=== PATIENT | female | born 1950 | race Caucasian/White ===

== ENCOUNTER 2016-05-15 10:19 | Inpatient (IN) ==
[2016-05-15] MEDS ORDERED: ZOFRAN IV PRN (11:27)
[2016-05-15] MEDS ORDERED: TYLENOL PO PRN (11:27)
[2016-05-15] MEDS ORDERED: DESYREL PO PRN (11:27)
[2016-05-15] MEDS ORDERED: SOLU-MEDROL IV ONE (11:27)
[2016-05-15] MEDS ORDERED: SOLU-MEDROL IV SCH (11:30)
[2016-05-15 11:59] LABS: ALLEN TEST YES; BLOOD TYPE ARTERIAL; DRAW SITE L RADIAL; METHB 1.2 % (0.0-1.5); O2(CT) 17.8 mL/dL (15.0-23.0); PCO2(98.6) 47 mmHg (35-45); PO2(98.6) 56 mmHg (60-100); SAMPLE BLOOD; SAO2 92.4 % (95.0-100.0); THB 14.3 g/dL (11.5-17.4); pH(98.6) 7.42 (7.35-7.45)
--- NOTE | 2016-05-15 12:01 | Diag Imaging Result Document ---
PROCEDURE NAME: CHEST-PORTABLE - 05/15/2016 PORTABLE CHEST X-RAY: COMPARISON: 05/15/2014. FINDINGS: There is cardiomegaly and pulmonary vascular congestion similar to prior. No new or focal infiltrates. No pneumothorax or large effusion. IMPRESSION: Cardiomegaly and pulmonary vascular congestion.
[2016-05-15 12:02] LABS: MODALITY CANNULA
[2016-05-15 12:02] LABS: MANUAL DIFF NEEDED? NO
[2016-05-15 12:05] LABS: BASO% 0.1 % (0.0-0.8); EOS# 0.15 X1000 (0.0-0.7); EOS% 1.1 % (0.0-10.0); HEMATOCRIT 42.1 % (37.0-47.0); HEMOGLOBIN 13.8 g/dL (12.0-16.0); IMM GRAN# 0.04 X1000 (0.0-0.04); IMM GRAN% 0.3 % (0.0-0.5); LYMPH# 1.44 X1000 (1.2-3.4); LYMPH% 10.5 % (20.5-51.1); MCH 32.8 PG (27-31); MCHC 32.8 g/dL (33-37); MONO# 1.05 X1000 (0.11-0.59); MONO% 7.6 % (1.7-9.3); MPV 10.3 FL (7.4-10.4); NEUT% 80.4 % (42.2-75.2); PLT 240 X1000 (130-400); RBC 4.21 XMIL (4.2-5.4)
[2016-05-15] MEDS: DUONEB (A & A) INH SCH ×4 (12:13→22:55)
[2016-05-15 12:25] LABS: AGAP 13; ALKALINE PHOSPHATASE 99 U/L (32-104); BUN 12 mg/dL (8-22); CALCIUM 9.2 mg/dL (8.8-10.2); CHLORIDE 96 mmol/L (98-107); COSMO 276; GOT 26 U/L (10-30); GPT 39 U/L (10-36); POTASSIUM 4.2 mmol/L (3.5-5.1); SODIUM 138 mmol/L (136-145); TCO2 29 mmol/L (25-35); TOTAL BILIRUBIN 0.51 mg/dL (0.20-1.00); TOTAL PROTEIN 8.1 g/dL (6.3-8.3)
[2016-05-15] MEDS: LOVENOX SUBQ SCH (12:53)
[2016-05-15] MEDS: NS 1,000 ML IV SCH (12:53)
[2016-05-15] MEDS: LEVAQUIN 750 MG/D5W 750 MG/150 ML IVPB IV SCH (12:53)
[2016-05-15] MEDS: CATAPRES PO SCH ×3 (12:54→23:16)
[2016-05-15] MEDS: CAPOTEN PO SCH ×2 (12:54→17:30)
[2016-05-15] MEDS: NEURONTIN PO SCH ×3 (12:54→23:16)
--- NOTE | 2016-05-15 16:10 | HISTORY AND PHYSICAL ---
CHIEF COMPLAINT: Fever and shortness of breath. HISTORY OF PRESENT ILLNESS: Mrs. Nena Motta is a 66-year-old lady with a history of multiple medical problems including essential hypertension, gastroesophageal reflux disease, obesity, renal cell carcinoma status post radical nephrectomy, as well as COPD, who is well known to me. She presented to the office today complaining of a one-week history of increasing shortness of breath, increasing work of breathing, pleuritic chest pain with deep inspiration and fits of coughing, cough productive of greenish sputum, fever as high as 102 degrees, and hard shaking rigors. She denied any nausea, vomiting, or abdominal pain. Her initial chest x-ray demonstrated no focal infiltrates, effusion, or pneumothorax. When I saw her in the office her O2 saturation was 77% on room air. PAST MEDICAL HISTORY: Hypertension, gastroesophageal reflux disease, obesity, history of renal cell carcinoma, COPD. PAST SURGICAL HISTORY: Left knee replacement, radical nephrectomy, lumbar fusion. ALLERGIES: Hydrocodone. FAMILY HISTORY: Noncontributory. SOCIAL HISTORY: She never smoked. She does not consume alcoholic beverages. She lives with her spouse. MEDICATIONS: Amlodipine 5 mg daily, Capoten 50 mg b.i.d., clonidine 0.2 mg t.i.d., Lasix 40 mg b.i.d., Neurontin 600 mg t.i.d., metformin 500 mg daily, metoprolol 50 mg b.i.d., Prilosec 40 mg daily. REVIEW OF SYSTEMS: She denies any recent weight gain or weight loss.HEENT: She wears glasses. CV: See HPI. Pulmonary: See HPI. GI: No reflux, dysphagia, melena, hematochezia, change in bowel habits, or rectal bleeding. Endocrine: No polyuria. No polydipsia. No cold or heat intolerance. Skin: No easy bruisability. : No leakage of urine with coughing or laughing. Neurologic: No migraines or seizures. Psychiatric: No history of depression. PHYSICAL EXAMINATION: GENERAL: This is an acutely ill-appearing, 66-year-old lady in mild distress secondary to dyspnea. VITAL SIGNS: Temperature 101 degrees, pulse 88, respirations 22, O2 saturation 77% on room air. HEENT: Fundi with arteriolar wall thickening. Pupils equal, round, reactive to light. Extraocular eye movements intact. TMs without bullae. NECK: Supple. No masses, JVD, or bruits. CV: Regular rate and rhythm. LUNGS: Diffuse end-expiratory wheezing with forced expiration. ABDOMEN: Soft, nontender, with active bowel sounds. EXTREMITIES: There is 2+ pitting edema. BREASTS/CLOTH REELER/RECTAL: Exam is deferred. NEUROLOGIC: Nonfocal. LABORATORY STUDIES: Various laboratory studies were performed. A CBC demonstrated a white count of 13.7, hemoglobin 13.8, hematocrit 42.1, and a platelet count of 240,000. ABGs demonstrated PO2 56, pCO2 47, pH 7.42, and oxyhemoglobin 88.7. Electrolytes demonstrate the following; sodium 138, potassium 4.2, chloride 96, BUN 12, creatinine 0.7, glucose 108. ASSESSMENT AND PLAN: 1. Acute respiratory failure with hypoxia secondary to acute chronic obstructive pulmonary disease exacerbation with a possible pneumonia. I will admit the patient to [facility]. I will begin O2 per protocol, DuoNeb nebulizer treatments q.6 hours, Solu-Medrol 125 mg IV load and then 80 mg IV q.8 hours, and begin broad-spectrum antibiotics including Levaquin 750 mg IV daily. We will check a sputum culture and blood cultures x2. 2. Hypertension. Her blood pressure is generally stable. We will continue her current regimen of medications. 3. Gastroesophageal reflux disease. We will initiate anti-reflux precautions and we will continue omeprazole 40 mg daily. Given her comorbid conditions and clinical presentation, I believe that it is necessary to treat her in the hospital. Attempting to treat her as an outpatient increases her risk for sudden . I anticipate that she will be in the hospital for at least 2 midnights and I will therefore place her in inpatient status. We will begin Lovenox 40 mg subcutaneously daily for DVT prophylaxis. cc: Thea Sanon MD
[2016-05-15] MEDS ORDERED: LASIX PO SCH (21:00)
[2016-05-15] MEDS: TOPROL XL PO SCH (23:16)
[2016-05-16] MEDS: DUONEB (A & A) INH SCH ×6 (03:45→23:50)
[2016-05-16] MEDS: PRILOSEC PO SCH (08:41)
[2016-05-16] MEDS: NORVASC PO SCH (08:41)
[2016-05-16] MEDS: NS 1,000 ML IV SCH (08:41)
[2016-05-16] MEDS: TOPROL XL PO SCH ×2 (08:41→22:58)
[2016-05-16] MEDS: CATAPRES PO SCH ×3 (08:42→22:58)
[2016-05-16] MEDS: NEURONTIN PO SCH ×3 (08:42→22:58)
[2016-05-16] MEDS: GLUCOPHAGE PO SCH (08:42)
[2016-05-16] MEDS: CAPOTEN PO SCH ×3 (08:42→22:58)
[2016-05-16] MEDS: LASIX IV SCH (08:44)
[2016-05-16 08:47] LABS: AGAP 5; BUN 13 mg/dL (8-22); CHLORIDE 98 mmol/L (98-107); COSMO 282; POTASSIUM 4.8 mmol/L (3.5-5.1); SODIUM 139 mmol/L (136-145); TCO2 36 mmol/L (25-35)
[2016-05-16 09:11] LABS: BASO% 0.1 % (0.0-0.8); HEMATOCRIT 41.8 % (37.0-47.0); HEMOGLOBIN 13.3 g/dL (12.0-16.0); IMM GRAN# 0.05 X1000 (0.0-0.04); IMM GRAN% 0.4 % (0.0-0.5); LYMPH# 0.81 X1000 (1.2-3.4); LYMPH% 6.8 % (20.5-51.1); MANUAL DIFF NEEDED? YES; MCH 32.2 PG (27-31); MCHC 31.8 g/dL (33-37); MCV 101.2 FL (81-99); MONO% 4.2 % (1.7-9.3); MPV 10.6 FL (7.4-10.4); NEUT% 88.5 % (42.2-75.2); PLT 247 X1000 (130-400); RBC 4.13 XMIL (4.2-5.4)
[2016-05-16 09:15] LABS: BANDS 2 % (0-1); LYMPHS 6 % (21-51); MONO 4 % (1-9)
--- NOTE | 2016-05-16 09:49 | Diag Imaging Result Document ---
PROCEDURE NAME: CHEST-2 VIEWS - 05/16/2016 PA AND LATERAL RADIOGRAPH OF THE CHEST: COMPARISON: 05/15/2016. FINDINGS: Cardiomegaly and mild pulmonary venous congestion are essentially stable. There is suggestion of mild atelectasis at the right mid lung zone. However, it can also be identified on the previous study and appears to be stable. No new consolidation is identified. IMPRESSION: Essentially stable chest.
--- NOTE | 2016-05-16 12:45 | PROGRESS NOTE ---
DATE: 05/16/2016 SUBJECTIVE: Mrs. Motta was admitted to [facility] with acute respiratory failure with hypoxia secondary to acute COPD exacerbation of underlying COPD. Her initial chest x-ray demonstrated no pneumonia. A followup chest x-ray today demonstrated no infiltrates. She is breathing much more comfortably. She is maintaining O2 sats of 95% to 97% on 3 L of 02 per nasal cannula. She continues with wheezing, persistent cough productive of greenish sputum and pleuritic chest pain worse with deep inspiration and paroxysms of cough. Her blood pressure has generally been stable. OBJECTIVE: Vital signs: Her blood pressure this morning was 136/65. Temperature 98.2, pulse 68, respirations 20. CV: Regular rate and rhythm. Lungs: Diffuse end-expiratory wheezing with forced expiration. There are course rhonchi in the right base. Abdomen: Soft, nontender, with active bowel sounds. Extremities: 1+ pitting edema bilaterally. ASSESSMENT AND PLAN: 1. Acute respiratory failure with hypoxia secondary to acute COPD exacerbation complicated by tracheobronchitis. Clinically, she is a little bit better this morning. Her O2 sats are ranging from 95% to 97% on 3 L of O2. We will continue supplemental O2, DuoNeb nebulizer treatments q.4 h., and broad-spectrum antibiotics including Levaquin. As she improves clinically, we will try to wean her off O2 and taper down on the IV steroids. 2. Hypertension. Her blood pressure is stable. She denies any chest pain, palpitations, or anginal equivalents. We will continue her current regimen of medications.3 3. Gastroesophageal reflux disease. We will continue antireflux precautions and omeprazole 40 mg daily. cc: Thea Sanon MD
[2016-05-16] MEDS: LEVAQUIN 750 MG/D5W 750 MG/150 ML IVPB IV SCH (14:25)
[2016-05-16] MEDS: LOVENOX SUBQ SCH (14:26)
[2016-05-16] MEDS: TYLENOL PM PO SCH ×2 (22:58→22:59)
[2016-05-17] MEDS: NS 1,000 ML IV SCH ×2 (02:40→21:32)
[2016-05-17] MEDS: DUONEB (A & A) INH SCH ×6 (03:19→23:40)
--- NOTE | 2016-05-17 12:27 | PROGRESS NOTE ---
DATE: 05/17/2016 SUBJECTIVE: Ms. Motta was admitted to [facility] with acute respiratory failure secondary to acute COPD exacerbation complicated by tracheobronchitis. Clinically she continues to improve. We were able to reduce the O2 per nasal cannula to 2 L per nasal cannula and she is maintaining O2 saturations of 96% to 98%. She is breathing more comfortably. She continues with a cough productive of light green to dark green sputum with pleuritic chest pain with deep inspiration and paroxysms of cough. She remains afebrile. Sputum cultures demonstrated 2+ gram- negative rods, 3+ gram-positive cocci. ARDS blood cultures x2 were negative. OBJECTIVE: Temperature 97.6, pulse 85, respirations 16. CV: Regular rate and rhythm. Lungs: She still has some scattered end expiratory wheezing throughout all lung urbina, but she definitely has improved air movement. Abdomen: Soft, nontender with active bowel sounds. ASSESSMENT AND PLAN: 1. Acute respiratory failure secondary to acute chronic obstructive pulmonary disease exacerbation with tracheobronchitis. We will continue supplemental O2, DuoNeb nebulizer treatments, IV antibiotics, and I will taper down on the IV steroids. 2. Hypertension. Her blood pressure is stable. We will continue her current regimen of medications. cc: Thea Sanon MD
[2016-05-17] MEDS: LOVENOX SUBQ SCH (12:38)
[2016-05-17] MEDS: SOLU-MEDROL IV SCH ×2 (12:38→19:05)
[2016-05-17] MEDS: LEVAQUIN 750 MG/D5W 750 MG/150 ML IVPB IV SCH (12:38)
[2016-05-17] MEDS: TOPROL XL PO SCH ×2 (12:38→21:34)
[2016-05-17] MEDS: CAPOTEN PO SCH ×3 (12:38→21:34)
[2016-05-17] MEDS: NORVASC PO SCH (12:39)
[2016-05-17] MEDS: PRILOSEC PO SCH (12:39)
[2016-05-17] MEDS: LASIX IV SCH (12:41)
[2016-05-17] MEDS: GLUCOPHAGE PO SCH (12:41)
[2016-05-17] MEDS: NEURONTIN PO SCH ×3 (12:41→21:34)
[2016-05-17] MEDS: CATAPRES PO SCH ×3 (12:42→21:33)
[2016-05-17] MEDS: TYLENOL PM PO SCH ×2 (21:33→21:34)
[2016-05-18] MEDS: DUONEB (A & A) INH SCH ×4 (03:02→21:15)
[2016-05-18] MEDS: SOLU-MEDROL IV SCH ×2 (03:23→09:26)
[2016-05-18] MEDS: LASIX IV SCH (09:26)
[2016-05-18] MEDS: NORVASC PO SCH (09:32)
[2016-05-18] MEDS: TOPROL XL PO SCH ×2 (09:32→22:39)
[2016-05-18] MEDS: PRILOSEC PO SCH (09:32)
[2016-05-18] MEDS: GLUCOPHAGE PO SCH (09:32)
[2016-05-18] MEDS: CAPOTEN PO SCH ×3 (09:32→22:38)
[2016-05-18] MEDS: NEURONTIN PO SCH ×3 (09:32→22:39)
[2016-05-18] MEDS: CATAPRES PO SCH ×3 (09:32→22:38)
--- NOTE | 2016-05-18 11:08 | PROGRESS NOTE ---
DATE: 05/18/2016 SUBJECTIVE: Mrs. Motta was admitted to [facility] with acute respiratory failure secondary to acute chronic obstructive pulmonary disease exacerbation complicated by tracheobronchitis. Clinically, she continues to improve. She still has a minimal cough but is breathing much more comfortably. O2 saturations are in the range of 96 to 98% on 3 L of O2. She feels very nervous and anxious on the IV steroids and nebulizer treatments. She does have a history of hypertension. Her blood pressure is trending upward. Systolic blood pressures have been in the 140s and 150s, whereas her diastolic blood pressures have ranged from 70-85. She denies any chest pain, palpitations, or anginal equivalents. OBJECTIVE: Vital signs: She is afebrile, pulse 80, respirations 16, BP 152/74. CV: Regular rate and rhythm. Lungs: Occasional end-expiratory wheezing with forced expiration but her air movement has improved significantly. Abdomen: Soft, nontender, with active bowel sounds. ASSESSMENT AND PLAN: 1. Acute respiratory failure secondary to acute chronic obstructive pulmonary disease exacerbation with tracheobronchitis. We will continue supplemental O2, reduce the nebulizer treatments to q.6 hours, reduce IV Solu-Medrol to 40 mg IV q.12 hours, and continue IV Levaquin. 2. Hypertension. Her blood pressure is trending upward. I will increase the amlodipine to 10 mg daily. cc: Thea Sanon MD
[2016-05-18] MEDS: LEVAQUIN 750 MG/D5W 750 MG/150 ML IVPB IV SCH (12:28)
[2016-05-18] MEDS: LOVENOX SUBQ SCH (12:29)
[2016-05-18] MEDS: NS 1,000 ML IV SCH (15:00)
[2016-05-18] MEDS ORDERED: SOLU-MEDROL IV SCH (21:00)
[2016-05-18] MEDS: TYLENOL PM PO SCH (22:39)
[2016-05-19] MEDS: DUONEB (A & A) INH SCH ×2 (03:15→09:02)
[2016-05-19] MEDS: NS 1,000 ML IV SCH (06:35)
[2016-05-19 08:23] VITALS: BP 135/65
[2016-05-19] MEDS ORDERED: NORVASC PO SCH (09:00)
[2016-05-19] MEDS: GLUCOPHAGE PO SCH (09:58)
[2016-05-19] MEDS: NEURONTIN PO SCH (09:58)
[2016-05-19] MEDS: PRILOSEC PO SCH (09:58)
[2016-05-19] MEDS: TOPROL XL PO SCH (09:58)
[2016-05-19] MEDS: CAPOTEN PO SCH (09:58)
[2016-05-19] MEDS: CATAPRES PO SCH (09:58)
--- NOTE | 2016-05-20 05:29 | DISCHARGE SUMMARY ---
ADMISSION DATE: 05/15/2016 DISCHARGE DATE: 05/19/2016 DISCHARGE DIAGNOSES: 1. Acute respiratory failure with hypoxia secondary to acute chronic obstructive pulmonary disease exacerbation complicated by Haemophilus influenzae bronchitis. 2. Chronic respiratory failure with hypoxia. 3. Essential hypertension. 4. Gastroesophageal reflux disease. 5. 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 DISCHARGE INSTRUCTIONS: 1. Return to clinic in 1 week to see me, Dr. Stephen Sanon, in anticipation of a transition of care visit. 2. Activity as tolerated. 3. Healthy heart diet. 4. Medications: Amlodipine 10 mg daily, omeprazole 40 mg daily, Neurontin 600 mg t.i.d., captopril 50 mg t.i.d., metoprolol ER 50 mg b.i.d., Lasix 40 mg b.i.d., clonidine 0.2 mg t.i.d., metformin 500 mg daily, ipratropium nebulized t.i.d. PHYSICAL EXAMINATION: General: This is a well-developed, well-nourished, lady in no apparent distress. Vital Signs: She is afebrile. Vital signs are stable. CV: Regular rate and rhythm. Lungs: Clear. Abdomen: Soft, nontender, with active bowel sounds. HOSPITAL COURSE: Ms. Motta was admitted to [facility] with acute respiratory failure secondary to acute chronic obstructive pulmonary disease exacerbation with tracheobronchitis. Her initial O2 saturation in my office on room air was 77%. We placed her on supplemental O2 per protocol and began intravenous Solu-Medrol, DuoNeb nebulizer treatments, and IV Levaquin. Blood and sputum cultures were obtained. Over the course of the next several days, she made steady progress and we were able to wean her down off the IV steroids without regression of symptoms. Blood cultures were negative. Sputum culture grew out Haemophilus influenzae. On the morning of admission in a chronic stable condition, we checked a room air O2 saturation which was 87%. We have made arrangements for her to have O2 continuously at 2 L per nasal cannula. She has had recurrent upper respiratory tract-type infections. She does have underlying COPD. We sumit IgG subclasses. Her IgG 3 subclass was low. 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 We will refer her to Dr. Calderon for further allergy testing and if the diagnosis is confirmed, we will refer her to Dr. Kay for consideration of IV IgG treatments. She does have a longstanding history of hypertension. Her blood pressure fluctuated a little bit while she was in the hospital. We did increase the amlodipine to 10 mg daily. Having reached maximum hospital benefit, the patient was discharged in stable condition. cc: Thea Sanon MD
--- NOTE | 2016-05-23 13:25 | DISCHARGE SUMMARY ---
ADMISSION DATE: 05/15/2016 DISCHARGE DATE: 05/19/2016 DISCHARGE SUMMARY ADDENDUM: Mrs. Nena Motta was admitted to [facility] with acute respiratory failure secondary to acute chronic obstructive pulmonary disease exacerbation complicated by a tracheobronchitis due to Haemophilus influenzae. She was treated with supplemental oxygen, albuterol and Atrovent nebulizer treatments, intravenous antibiotics, and intravenous Solu-Medrol. She did have fever and a leukocytosis on admission. During her hospitalization, she never had mental status changes. There was no end organ failure or dysfunction. She never required pressors. In my opinion, she was not septic. I believe that the appropriate diagnosis is acute respiratory failure with acute chronic obstructive pulmonary disease exacerbation complicated by Haemophilus influenzae bronchitis. cc: Thea Sanon MD
== END 2016-05-19 11:45 | disposition home or self-care (01) ==
LOC: DIRADM 10:19 → 3N 11:08
PROVIDERS: ADMIT Internal Medicine; ATTEND Internal Medicine

== ENCOUNTER 2018-10-20 17:54 | Inpatient (IN) ==
[2018-10-20] MEDS ORDERED: ASPIRIN PR ONE (18:05)
[2018-10-20] MEDS ORDERED: ASPIRIN PO ONE (18:05)
--- NOTE | 2018-10-20 18:22 | Diag Imaging Result Doc PS360 ---
EXAM: CHEST-2 VIEWS 10/20/2018 HISTORY: SOB TECHNIQUE: AP and lateral chest COMMENT: There is cardiomegaly. There is ill-defined opacity in both lower lobes which was not apparent on 07/27/2017. IMPRESSION: Cardiomegaly and pulmonary edema. Electronically signed by Armando Sage 10/20/2018 6:20 PM
[2018-10-20] MEDS ORDERED: LASIX IV ONE (18:49)
--- NOTE | 2018-10-20 18:57 | PROVIDER DOCUMENTATION ---
HPI-Respiratory General - General Chief Complaint: Shortness of Breath Stated Complaint: HR HIGH 108, BP HIGH, SOB Time Seen by Provider: 10/20/18 18:30 Source: patient Allergies/Adverse Reactions: Patient Allergies Allergy/AdvReac Type Severity Reaction Status Date / Time hydrocodone bitartrate * Allergy Intermediate RASH Verified 04/22/17 22:20 [From Lortab] Home Medications: Home Medication List Medication Instructions Recorded Confirmed Last Taken Type Captopril [Capoten] 50 mg PO TID 04/27/13 07/27/17 07/27/17 07:00 History Omeprazole [Prilosec] 40 mg PO DAILY 04/27/13 07/27/17 07/26/17 08:00 History Furosemide [Lasix] 40 mg PO BID 05/15/16 07/27/17 07/26/17 16:00 History Metformin HCl 500 mg PO DAILY 05/15/16 07/27/17 07/26/17 10:00 History Allopurinol 300 mg PO DAILY 04/22/17 07/27/17 07/26/17 21:00 History Arformoterol Neb [Brovana Neb] 1 dose INH BID 04/22/17 07/27/17 07/26/17 10:00 History Ibuprofen 800 mg PO HS 04/22/17 07/27/17 07/26/17 21:00 History Ipratropium [place] 0.2 mg IH TID 04/22/17 07/27/17 07/26/17 17:00 History Meclizine HCl [Antivert] 50 mg PO HS 04/22/17 07/27/17 07/26/17 21:00 History Melatonin 3 mg PO QHS 04/22/17 07/27/17 07/26/17 21:00 History Potassium Chloride E.r. [Klor-Con] 20 meq PO DAILY 04/22/17 07/27/17 07/26/17 08:00 History Amlodipine [Norvasc] 5 mg PO DAILY #30 tab 04/24/17 07/27/17 07/27/17 07:00 Rx Clonidine [Catapres] 0.2 mg PO TID tablet 04/24/17 07/27/17 07/27/17 07:00 Rx Gabapentin [Neurontin] 600 mg PO TID capsule 04/24/17 07/27/1718 19:00 Rx Metoprolol Succinate E.r. [Toprol 50 mg PO BID tablet 04/24/17 07/27/17 07/27/17 07:00 Rx Xl] - History of Present Illness-Resp Nature of Presenting Problem: Patient is a 68 year old obese white female with history of CHF,GERD, and type II diabetes who presents with worsening shortness of breath for past several 2 weeks. Denies chest pain, productive cough, fever. Review of Systems - Adult - REVIEW OF SYSTEMS - ADULT Constitutional: denies: chills, fever Eyes: denies: blurred vision Ears, Nose, Mouth & Throat: denies: throat pain Cardiovascular: reports: orthopnea. denies: chest pain Respiratory: reports: cough, shortness of breath Gastrointestinal: reports: nausea. denies: abdominal pain, constipation, diarrhea, vomiting Genitourinary: denies: dysuria Musculoskeletal: reports: no symptoms reported Integumentary: denies: rash Neurological: denies: numbness Psychiatric: reports: no symptoms reported Endocrine: reports: no symptoms reported Hematologic/Lymphatic: reports: no symptoms reported Allergic/Immunologic: reports: no symptoms reported All Other Systems: Reviewed and Negative Past History - Adult - PAST MEDICAL HISTORY-ADULT Review of Records: reports: Old Records Reviewed, Nursing Assessment Review, Medications Reviewed, Social history reviewed & non-contributory. Major Childhood Illnesses: reports: denies history Cardiovascular: reports: CAD, CHF, HTN, palpitations Respiratory: reports: COPD Gastrointestinal: reports: denies history, GERD Obstetrical/Gynecological: reports: denies history Genitourinary: reports: denies history, cancer (kidney) Musculoskeletal: reports: denies history, other (gout) Neurological: reports: denies history Endocrine/Immune: reports: Diabetes Other Conditions: reports: denies history - PRIOR SURGERIES/PROCEDURES Surgical/Procedure History: reports: hernia repair, joint replacement (knee), back/neck (back), other (cancer removal from kidney) - IMMUNIZATION STATUS Childhood Immunizations: See Nurse Assessment Flu Vaccine: See Nurse Assessment - FAMILY HISTORY Family History: reviewed, not pertinent - SOCIAL HISTORY Smoking: denies Substance Use: none/never Alcohol Use Frequency: never Physical Exam-General - CONSTITUTIONAL General Appearance: appears well, no apparent distress, obese - EYES Eyes: other (clear) - HEAD, EARS, NOSE, MOUTH & THROAT HENMT: moist mucous membranes, normal ENT inspection - NECK Neck: supple - RESPIRATORY Respiratory: decreased breath sounds, rales (basilar) - CARDIOVASCULAR Cardiovascular: regular rate, rhythm - GASTROINTESTINAL (ABDOMEN) Abdominal Exam: non tender, soft - MUSCULOSKELETAL Back Exam: no CVA tenderness, no vertebral tenderness Extremity: swelling (3+) - HEART Score HEART Score: History: Slightly Suspicious HEART Score: ECG: Normal HEART Score: Age: > or = 65 Years HEART Score: Risk Factors for Atherosclerotic Disease: > or = 3 Risk Factors or History of Atherosclerotic Disease HEART Score: Troponin: < or = Normal Limit Total HEART Score:: 4 Progress - PLAN OF CARE/RESULTS Progress/Plan/Lab Results: Vital Signs - 8 hr 10/20/18 17:59 Temperature 97.9 F Pulse Rate 107 H Respiratory Rate 20 Blood Pressure 202/98 O2 Sat by Pulse Oximetry 95 Laboratory Results - last 24 hr 10/20/18 10/20/18 10/20/18 18:41 18:41 18:41 WBC 10.27 RBC 4.02 L Hgb 13.3 Hct 40.1 MCV 99.8 H MCH 33.1 H MCHC 33.2 RDW Std Deviation 16.3 H Plt Count 242 MPV 11.3 H Immature Gran % (Auto) 0.4 Neut % (Auto) 80.5 H Lymph % (Auto) 10.5 L [place] % (Auto) 5.8 Eos % (Auto) 2.5 Baso % (Auto) 0.3 Immature Gran # (Auto) 0.04 Neut # (Auto) 8.26 H Lymph # (Auto) 1.08 L [place] # (Auto) 0.60 H Eos # (Auto) 0.26 Baso # (Auto) 0.03 PT INR PTT (Actin FS) D-Dimer, Quantitative Sodium 142 Potassium 4.3 Chloride 99 Carbon Dioxide 22 L Anion Gap 21 BUN 13 Creatinine 0.6 Estimated GFR/1.73 m2 > 60 BUN/Creatinine Ratio 22 Glucose 248 H Calculated Osmolality 292 Calcium 9.2 Total Bilirubin 0.27 AST 68 H ALT 64 H Alkaline Phosphatase 120 H Creatine Kinase 79 Troponin T Oer-Y-Hflhnjjmxnu Pept 128 Total Protein 7.3 Albumin 4.2 Globulin 3.1 Albumin/Globulin Ratio 1.4 10/20/18 10/20/18 10/20/18 18:41 18:41 20:50 WBC RBC Hgb Hct MCV MCH MCHC RDW Std Deviation Plt Count MPV Immature Gran % (Auto) Neut % (Auto) Lymph % (Auto) [place] % (Auto) Eos % (Auto) Baso % (Auto) Immature Gran # (Auto) Neut # (Auto) Lymph # (Auto) [place] # (Auto) Eos # (Auto) Baso # (Auto) PT 14.3 INR 1.09 PTT (Actin FS) 36.3 D-Dimer, Quantitative 0.65 H Sodium Potassium Chloride Carbon Dioxide Anion Gap BUN Creatinine Estimated GFR/1.73 m2 BUN/Creatinine Ratio Glucose Calculated Osmolality Calcium Total Bilirubin AST ALT Alkaline Phosphatase Creatine Kinase Troponin T < 0.010 Rex-[id number] Pept Total Protein Albumin Globulin Albumin/Globulin Ratio Orders Category Date Time Status Cardiac Monitoring DIRECTED Care 10/20/18 18:05 Active Core Temperature ORDERED Care 10/20/18 20:40 Active Oxygen Therapy- ED Nursing DIRECTED Care 10/20/18 18:05 Active Saline Loc NOW Care 10/20/18 18:05 Active CHEST-2 VIEWS [RAD] Stat Exams 10/20/18 18:05 Completed CTA [CT ANGIOGRM PULMONARY ARTERIES] [CT] Stat Exams 10/20/18 22:53 Ordered CBC WITH ELECTRONIC DIFF [HEME] Stat Lab 10/20/18 18:41 Completed CK PROFILE [SP CHEM] Stat Lab 10/20/18 18:41 Completed COMPREHENSIVE METABOLIC PANEL [CHEM] Stat Lab 10/20/18 18:41 Completed D-DIMER [COAG] Stat Lab 10/20/18 20:50 Completed PRO B-NATRIURETIC PEPTIDE Stat Lab 10/20/18 18:41 Completed PROTIME WITH INR [COAG] Stat Lab 10/20/18 18:41 Completed PTT [COAG] Stat Lab 10/20/18 18:41 Completed TROPONIN T Stat Lab 10/20/18 18:41 Completed Aspirin Med 10/20/18 18:05 Discontinued 300 mg FL NOW ONE Aspirin Med 10/20/18 18:05 Discontinued 325 mg PO NOW ONE Furosemide [Lasix] Med 10/20/18 18:49 Discontinued 60 mg IV NOW ONE Labetalol Med 10/20/18 21:03 Discontinued 10 mg IV NOW ONE Labetalol Med 10/20/18 20:46 Discontinued 20 mg IV NOW ONE CP/SOB/Palp >45 yrs of Age Stat Oth 10/20/18 18:05 Ordered EKG [EKG] Stat Ther 10/20/18 18:05 Ordered EKG [EKG] Stat Ther 10/20/18 21:03 Ordered Result Diagrams: 10/20/18 18:41 10/20/18 18:41 - CONSULTS/PCP/HOSPITALIST Notification #1 *Consult/PCP/Hospitalist*: hospitalist service Time Discussed: 22:45 Consult Disposition: Admit Departure - Departure Date of Disposition Decision: 10/20/18 Time of Disposition Decision: 22:55 DIAGNOSIS: Elevated d-dimer CHF (congestive heart failure) Qualifiers: Heart failure type: other Qualified Code(s): I50.9 - Heart failure, unspecified Disposition: ADMITTED INPATIENT 09 Certified Medical Emergency: Emergent Condition: Stable Referrals and Follow-Ups: Marino Sanon MD [Primary Care Provider] - - Critical Care Note This patient required my direct & personal management of CC.: No Attestation - Physician/ MY Attestation Patient care was provided by Advanced Practice Provider:: No The physician spent face to face time with patient:: Yes Advanced Practice Provider documentation review:: Supervising physician onsite and consulted in the evaluation and care of this patient. The physician did have a face to face encounter with the patient.
[2018-10-20 19:52] LABS: BASO# 0.03 X1000 (0.0-0.2); BASO% 0.3 % (0.0-0.8); EOS# 0.26 X1000 (0.0-0.7); EOS% 2.5 % (0.0-10.0); HEMATOCRIT 40.1 % (37.0-47.0); HEMOGLOBIN 13.3 g/dL (12.0-16.0); IMM GRAN# 0.04 X1000 (0.0-0.04); IMM GRAN% 0.4 % (0.0-0.5); LYMPH# 1.08 X1000 (1.2-3.4); LYMPH% 10.5 % (20.5-51.1); MCH 33.1 PG (27-31); MCHC 33.2 g/dL (33-37); MCV 99.8 FL (81-99); MONO% 5.8 % (1.7-9.3); MPV 11.3 FL (7.4-10.4); NEUT# 8.26 X1000 (1.4-6.5); NEUT% 80.5 % (42.2-75.2); PLT 242 X1000 (130-400); RBC 4.02 XMIL (4.2-5.4); RDW 16.3 % (11.5-14.5); WBC 10.27 X1000 (4.8-10.8)
[2018-10-20 19:57] LABS: INR 1.09; PROTIME 14.3 Seconds (11.0-16.0)
[2018-10-20 19:58] LABS: PTT 36.3 Seconds (22.3-41.8)
[2018-10-20 20:16] LABS: AGAP 21; ALB/GLOB RATIO 1.4; ALBUMIN 4.2 g/dL (3.5-5.0); ALKALINE PHOSPHATASE 120 U/L (32-104); BUN 13 mg/dL (8-22); CALCIUM 9.2 mg/dL (8.8-10.2); CHLORIDE 99 mmol/L (98-107); CK PROFILE 79 U/L (24-173); COSMO 292; CREATININE 0.6 mg/dL (0.5-0.9); ESTIMATED GFR > 60; GLUCOSE 248 mg/dL (70-104); GOT 68 U/L (10-30); GPT 64 U/L (10-36); POTASSIUM 4.3 mmol/L (3.5-5.1); SODIUM 142 mmol/L (136-145); TCO2 22 mmol/L (25-35); TOTAL BILIRUBIN 0.27 mg/dL (0.20-1.00); TOTAL PROTEIN 7.3 g/dL (6.3-8.3)
[2018-10-20] MEDS ORDERED: LABETALOL IV ONE ×2 (20:46→21:03)
--- NOTE | 2018-10-21 00:01 | EKG Report ---
Test Performed on : 10/20/2018 6:32:42 PM Test Reason : SOB Blood Pressure : / mmHG Vent. Rate : 101 BPM Atrial Rate : 101 BPM P-R Int : 152 ms QRS Dur : 074 ms QT Int : 360 ms P-R-T Axes : 057 008 063 degrees QTc Int : 466 ms Sinus tachycardia. Otherwise normal ECG When compared with ECG of 27-JUL-2017 08:51, Vent. rate has increased BY 33 BPM Unconfirmed Result
[2018-10-21] MEDS ORDERED: TYLENOL PO PRN (00:13)
[2018-10-21] MEDS ORDERED: ZOFRAN PO PRN (00:13)
[2018-10-21] MEDS ORDERED: NITROGLYCERIN TOP ONE (00:38)
[2018-10-21] MEDS ORDERED: ASPIRIN ONE (00:54)
[2018-10-21] MEDS ORDERED: HUMALOG SUBQ ONE (01:27)
[2018-10-21] MEDS ORDERED: LABETALOL IV PRN (01:27)
[2018-10-21] MEDS ORDERED: ANTIVERT PO PRN (02:10)
--- NOTE | 2018-10-21 04:43 | HISTORY AND PHYSICAL ---
CHIEF COMPLAINT: Shortness of breath. HISTORY OF PRESENT ILLNESS: This 68-year-old white female is a regular patient of Dr. Sherman Sanon. She states that for the past 3 weeks, her breathing has been "going downhill." She states that she is progressively getting more short of breath, that her heart rate is going up, and her blood pressure is out of control. She describes a chest pressure which frequently hits her even at rest. It feels like a heavy weight on her chest and she becomes more short of breath. She is also nauseated, although she does not have any diaphoresis. Interestingly, the patient was admitted last year for almost the exact same symptoms. She had a workup for congestive heart failure and a heart catheterization at that time. The patient denies orthopnea or PND. She wears CPAP at home at night and has not really noticed any problems with that. She states that she has COPD and she generally gets some relief from her nebulizer treatments. In the emergency room, the patient was evaluated and found to be hypertensive, tachycardic, mild- to-moderately hypoxemic, and was scheduled for admission. PAST MEDICAL HISTORY: 1. History of chest pain. 2. History of shortness of breath. 3. Chronic respiratory failure with hypoxemia. 4. Chronic obstructive pulmonary disease. 5. History of pulmonary edema. 6. History of diastolic heart failure. 7. Hypertension. 8. Hyperlipidemia. 9. Diabetes mellitus, on oral medications. 10. History of malignant neoplasm of the kidney. 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 12. Chronic peripheral edema. 13. Morbid obesity. SOCIAL HISTORY: The patient is and retired. She has 3 children. She does not use alcohol. She is a former smoker who quit many years ago. FAMILY HISTORY: Significant for coronary artery disease. ALLERGIES: Hydrocodone. REVIEW OF SYSTEMS: The patient denies any fever or chills. She does have a chronic mild hacking cough. She has chronic shortness of breath and chest pain. She has chronic nausea which occurs every afternoon. She is compliant with her CPAP and her nebulizer treatments. She was very unclear as to why she did not contact Dr. Sanon if she had been, indeed, short of breath or worsening for a period of 3 weeks. She denies any increase in leg swelling. She has had no leg pain. She generally has not had palpitations up until the last few days, when she felt like her heart was racing more. Her weight has been stable. She had no vomiting. She had no diarrhea or constipation. She had no genitourinary complaints. She had no neurological signs or symptoms. PHYSICAL EXAMINATION: Temperature 97.9, pulse 107, respiratory rate 20, blood pressure at 1800 hours was 202/98. When I was in the room, it was 173/76. 95% saturated on room air. GENERAL: She is a well-developed, obese, white female, in no acute distress. She seems a little bit flustered, but is otherwise attentive and engaging. HEENT: The sclerae anicteric. Oral mucosa is adequately hydrated. NECK: There is no JVD in semi recumbent position. LUNGS: Generally the lungs are clear. She is not wheezing. Slightly diminished breath sounds in the bases bilaterally, which may be due to body habitus. CARDIOVASCULAR: Regular at approximately 96 beats per minute at the time of my examination. Peripheral pulses were difficult due to her obesity. ABDOMEN: Showed bowel sounds were present. Her abdomen was protuberant. EXTREMITIES: She had trace to 1+ pitting edema in the lower extremities bilaterally. She stated that this was baseline for her. NEUROLOGIC: Cranial nerves were intact. The patient was able to move in the bed freely and showed no sign of focal neurological deficit. LABORATORY: White cells 10.2, hematocrit 40.1, BUN 13, creatinine 0.6. Glucose 248. AST and ALT were slightly elevated as was the alkaline phosphatase. CK was 79, troponin 0.010. ProBNP was 128. I do not see where CK was drawn. ASSESSMENT AND PLAN: According to Dr. Stephan Cisneros's notes, the patient had some form of exacerbation in April 2017, this followed with echocardiogram, which showed an ejection fraction of 55% with mild LVH. Lead to the patient was taken nuclear scan, it showed an ejection fraction of 48 percent. She had a heart catheterization, which showed minimal coronary disease. Ejection fraction 55 to 60 percent.. ASSESSMENT AND PLAN: 1. I plan to admit the patient and recheck cardiac enzymes in a serial fashion. We may want to consult Cardiology again, but for the time being, I am just going to order an echocardiogram for the morning. I think that her chest discomfort and shortness of breath are multifactorial, including contributions by her chronic obstructive pulmonary disease with respiratory failure, obstructive sleep apnea, and her morbid obesity causing relative restrictive lung disease as well. 2. We will continue to monitor blood pressure. We will add back her home medications as those are reconciled, and will have p.r.n.'s written for elevated blood pressure. I think I am going to put a little bit of nitroglycerin paste on her for as a blood pressure lowering agent. 3. The patient clearly has chronic obstructive pulmonary disease. We will give her breathing treatments 3 times a day, as well as supplemental oxygen and CPAP for nighttime use. It was noted that her D-dimer was barely elevated and they ran a CT angiogram of the lungs, which showed no blood clots. 4. The patient's diabetes will be monitored with fingerstick blood sugars and sliding scale insulin. Since she just had a CT angiogram, we are going to hold her metformin for a number of days. Dr. Sanon will resume care in the morning. cc: MD Thea Mccollum MD
--- NOTE | 2018-10-21 06:45 | Diag Imaging Result Doc PS360 ---
CT ANGIOGRM PULMONARY ARTERIES - 10/20/2018 INDICATION: sob,elevated d-dimer TECHNIQUE: Axial CT images were obtained after administering intravenous contrast. Coronal MIP images were generated. COMPARISON: 04/22/2017 FINDINGS: There is no definite pulmonary embolism. Heart and great vessels are normal. Stable bulky calcified mediastinal lymph nodes, mainly pretracheal and precarinal lymph nodes. The calcified precarinal lymph node measures about 2.7 x 4.4 cm. Upper abdominal images are unremarkable. There are some faint peripheral infiltrates in the lung bases that are indeterminate. There are moderate degenerative changes of the spine. No acute or suspicious bony lesion. IMPRESSION: 1. Negative for pulmonary embolism. 2. Bulky calcified mediastinal lymph nodes. 3. Faint interstitial infiltrates in the lung bases may represent pneumonia, atelectasis or fibrosis. This exam was performed using automated exposure control, adjustment of mA or kV according to patient size, and/or use of iterative reconstruction technique Electronically signed by Aba Orosco 10/21/2018 6:42 AM
[2018-10-21] MEDS ORDERED: GLUCOPHAGE PO SCH (09:00)
[2018-10-21] MEDS ORDERED: CAPTOPRIL 50 MG PO SCH (09:00)
[2018-10-21] MEDS ORDERED: NORVASC PO SCH (09:00)
[2018-10-21] MEDS ORDERED: TOPROL XL PO SCH (09:00)
[2018-10-21 09:05] LABS: URINE SOURCE CLEAN CATCH
[2018-10-21 09:10] LABS: BILIRUBIN URINE NEGATIVE (NEGATIVE); BLOOD URINE NEGATIVE (NEGATIVE); COLOR YELLOW; GLUCOSE URINE NEGATIVE (NEGATIVE); KETONE URINE NEGATIVE (NEGATIVE); LEUKOCYTES URINE SMALL (NEGATIVE); NITRITE URINE NEGATIVE (NEGATIVE); PROTEIN URINE TRACE mg/dL (NEGATIVE); SP GRAVITY URINE 1.046; TURBIDITY URINE CLEAR (CLEAR); UROBILINOGEN URINE 2 mg/dL (NORMAL)
[2018-10-21 09:11] LABS: UR EPITHELIAL CELLS <10 /HPF (<10); URINE BACTERIA 3+ /HPF; URINE RBC <10 /HPF (<10); URINE WBC 20-40 /HPF (<10)
[2018-10-21] MEDS: NEURONTIN PO SCH ×3 (09:48→18:02)
[2018-10-21] MEDS: LASIX IV SCH ×2 (09:48→20:06)
[2018-10-21] MEDS: ZYLOPRIM PO SCH (09:48)
[2018-10-21] MEDS: CATAPRES PO SCH ×3 (09:49→18:02)
[2018-10-21] MEDS: KLOR-CON PO SCH (09:49)
[2018-10-21] MEDS: CARDIZEM PO SCH ×3 (09:59→20:06)
[2018-10-21] MEDS: PRILOSEC PO SCH (09:59)
[2018-10-21] MEDS: AVAPRO PO SCH (09:59)
[2018-10-21] MEDS: BROVANA NEB INH SCH ×2 (10:25→21:40)
[2018-10-21] MEDS: DUONEB (A & A) INH SCH ×3 (10:31→21:40)
--- NOTE | 2018-10-21 18:52 | PROGRESS NOTE ---
DATE: 10/21/2018 SUBJECTIVE: Mrs. Motta was admitted to [facility] with acute on chronic congestive heart failure secondary to diastolic dysfunction. She was with complaint of increasing dyspnea with exertion, increasing peripheral edema, PND and orthopnea. She does have a history of hypertension her blood pressure has been quite labile. Systolic blood pressures were ranging from 188 to 202 whereas her diastolic blood pressures were ranging from 98 to 117. She denied any chest pain, palpitations, or anginal equivalents. OBJECTIVE: Vital signs: Temperature 98.5 degrees, pulse 110, BP 180/77. CV: Tachycardic regular S1, S2. Lungs: Crackles in the bases bilaterally. Abdomen: Soft, nontender, with active bowel sounds. Extremities: 2+ pitting edema in the lower extremities bilaterally. ASSESSMENT AND PLAN: 1. Accelerated hypertension. 2. Acute on chronic congestive heart failure secondary to diastolic dysfunction. We will continue a salt and fluid restricted diet. I will diurese her with Lasix 40 mg IV q.12 hours. Because of the underlying chronic obstructive pulmonary disease, diastolic congestive heart failure and hypertension, I am going to stop the Toprol-XL which can exacerbate the underlying chronic obstructive pulmonary disease and begin diltiazem 60 mg q.6 hours. I will stop the Capoten and begin Avapro 300 mg daily. We will continue clonidine 0.2 mg b.i.d. I will recheck a PA and lateral chest x-ray in the morning. cc: Thea Sanon MD
[2018-10-21] MEDS ORDERED: MELATONIN PO SCH (21:00)
--- NOTE | 2018-10-21 23:56 | ECHO REPORT ---
ORDER DATE: 10/21/2018 MEASUREMENTS: Septal thickness 1.3, left ventricular internal diameter in diastole 4.8, posterior wall thickness 1.3, left ventricular angiogram in systole 3.6, aortic root 2.4, left atrium 4.2. SUMMARY: 1. Technically study due to limited acoustic window quality. 2. Aortic valve is trileaflet and opens normally on 2-dimensional images. Peak gradient across the aortic valve is approximately 10 mmHg. Mitral and tricuspid valves are without evidence of structural abnormality, while pulmonic valve is not well demonstrated. There is trace mitral regurgitation. Aortic root is normal in size. 3. Normal left ventricular chamber size with mild concentric left hypertrophy is demonstrated. Estimated left ventricular ejection fraction appears to be at least 55%. No regional wall abnormality can be appreciated. Left atrium is mildly enlarged. Right atrium, right ventricle are normal in size with grossly preserved right ventricular systolic function. 4. No pericardial effusion. 5. Inferior vena cava not well demonstrated. CONCLUSION: 1. Technically difficult study. 2. No significant valvular abnormality evident. 3. Mild concentric left hypertrophy with estimated left ejection fraction at least 55%. 4. Mild left atrial enlargement. cc: MD Salinas Katz MD M. Neel Roberts, MD
[2018-10-22] MEDS: CARDIZEM PO SCH ×3 (02:23→16:03)
[2018-10-22] MEDS: BROVANA NEB INH SCH (07:56)
[2018-10-22] MEDS: DUONEB (A & A) INH SCH ×2 (07:57→15:29)
[2018-10-22] MEDS: CATAPRES PO SCH ×2 (08:45→12:41)
[2018-10-22] MEDS: AVAPRO PO SCH (08:45)
[2018-10-22] MEDS: ZYLOPRIM PO SCH (08:45)
[2018-10-22] MEDS: PRILOSEC PO SCH (08:46)
[2018-10-22] MEDS: KLOR-CON PO SCH (08:46)
[2018-10-22] MEDS: LASIX IV SCH (08:46)
[2018-10-22] MEDS: NEURONTIN PO SCH ×2 (08:46→12:40)
[2018-10-22] MEDS ORDERED: GLUCOPHAGE PO SCH (09:00)
--- NOTE | 2018-10-22 10:27 | Diag Imaging Result Doc PS360 ---
EXAM: CHEST-2 VIEWS 10/22/2018 HISTORY: CHF TECHNIQUE: PA and lateral chest COMMENT: There is a calcified right tracheobronchial node which was also present on 10/20/2018. There is mild cardiomegaly. Compared to 07/27/2017 the appearance of the chest has not changed appreciably. IMPRESSION: Stable chest. Electronically signed by Armando Sage 10/22/2018 10:24 AM
--- NOTE | 2018-10-22 10:33 | PROGRESS NOTE ---
DATE: 10/22/2018 SUBJECTIVE: Mrs. Motta was admitted to [facility] with acute on chronic congestive heart failure secondary to diastolic dysfunction. We placed her on a salt and fluid restricted diet and aggressively diuresed her with Lasix. We weaned her off Toprol-XL and began and diltiazem 60 mg q.6 hours to improve cardiac compliance. She is breathing much better. She denies any paroxysmal nocturnal dyspnea, orthopnea or dyspnea with exertion. She has had good urine output. OBJECTIVE: On admission, her blood pressure was quite labile. Blood pressures are trending down. Her blood pressure was 126/60 this morning. She denies any chest pain, palpitations, or anginal equivalents.CV: Regular rate and rhythm. Lungs: Clear. Abdomen: Soft, nontender, with active bowel sounds. Extremities: 1+ pitting edema in the lower extremities bilaterally. ASSESSMENT AND PLAN: 1. Acute on chronic congestive heart failure secondary to diastolic dysfunction. Clinically, she is better. We will continue a salt and fluid restricted diet. I will continue to diurese her aggressively with Lasix. I will recheck a PA and lateral chest x-ray today. 2. Hypertension. Her blood pressure is trending down. We will continue Avapro 300 mg daily, diltiazem 60 mg q.6 hours and clonidine 0.2 mg b.i.d.. cc: Thea Sanon MD
[2018-10-22] MEDS ORDERED: LEVAQUIN PO ONE (12:27)
[2018-10-22 16:43] VITALS: BP 119/44
[2018-10-22] MEDS ORDERED: SEPTRA DS PO SCH (21:00)
== END 2018-10-22 18:58 | disposition home or self-care (01) | DRG 292 ==
LOC: ED 17:54 → 3N 10-21 00:27 → SUATTDRO 10-21 00:27 → 3N 10-21 01:03
PROVIDERS: ADMIT Internal Medicine; ATTEND Internal Medicine